=== PATIENT | male | born 1975 | race Caucasian/White ===

== ENCOUNTER 2017-03-09 03:17 | Emergency (ER) | payer MEDICAID ==
[~2017-03-09] VITALS: Ht 190.5 cm; Wt 90.1 kg
[~2017-03-09 03:17] MED LIST: ALBU18HF INH; ALBU90AE INH; NAPR500T3 PO
[2017-03-09] MEDS ORDERED: ONDANSETRON 2MG/ML, 2ML IVPush ONE (04:00)
[2017-03-09] MEDS ORDERED: MAALOX/HYOSCYAMINE/LIDOCAINE 45 ML BOTTLE PO ONE (04:00)
[2017-03-09] MEDS ORDERED: SODIUM CHLORIDE 0.9% 1,000ML IVBOLUS ONE (04:00)
[2017-03-09] MEDS ORDERED: FAMOTIDINE 20 MG/2 ML IVP ONE (04:00)
[2017-03-09] MEDS ORDERED: MAALOX/HYOSCYAMINE/LIDOCAINE 45 ML BOTTLE ONE (04:31)
[2017-03-09] MEDS ORDERED: FAMOTIDINE 20 MG/2 ML ONE (04:31)
[2017-03-09 04:34] LABS: ASPARTATE AMINO TRANSFERASE 17 U/L (15-37); BLOOD UREA NITROGEN 12 mg/dL (7-18)
[2017-03-09 04:38] LABS: IS PT STATUS REG ER OR PRE ER? YES
[2017-03-09] MEDS ORDERED: POTASSIUM CHLORIDE 20 MEQ TAB.ER.PRT PO ONE (05:00)
[2017-03-09] MEDS ORDERED: POTASSIUM CHLORIDE 20 MEQ TAB.ER.PRT ONE (05:06)
[2017-03-09 05:55] VITALS: BP 126/62
== END 2017-03-09 06:01 | disposition home or self-care (01) ==
LOC: ED 05:43
DX: R07.89 Other chest pain (principal)
CPT/HCPCS: 36415; 71010; 80053; 80307; 81003; 83690; 84484; 85025; 93005; 96374; 99284; J7030; 96375; S0028

== ENCOUNTER 2017-08-22 20:49 | Emergency (ER) | payer OTHER, MEDICAID ==
[~2017-08-22] VITALS: Ht 190.5 cm; Wt 77.1 kg
[~2017-08-22 20:49] MED LIST changes: -NAPR500T3 PO; +NAPR500T4 PO
[2017-08-22 22:08] LABS: HEMATOCRIT 43.7 % (39.2-51.8); HEMOGLOBIN 14.9 g/dL (13.7-18.0); WHITE BLOOD COUNT 10.5 x10^3/uL (3.4-10)
[2017-08-22 22:20] LABS: ASPARTATE AMINO TRANSFERASE 10 U/L (15-37); BLOOD UREA NITROGEN 12 mg/dL (7-18)
[2017-08-23 00:33] VITALS: BP 106/73
== END 2017-08-23 00:36 | disposition home or self-care (01) ==
LOC: ED 23:58
DX: K29.00 Acute gastritis without bleeding (principal)
CPT/HCPCS: 36415; 80053; 83690; 85025; 93005; 99285

== ENCOUNTER 2017-10-11 03:13 | Emergency (ER) | payer MEDICAID ==
[~2017-10-11] VITALS: Ht 190.5 cm; Wt 75.7 kg
[2017-10-11 03:49] LABS: BASOPHILS # (AUTO) 0.07 x10^3/uL (0-0.1); BASOPHILS % (AUTO) 1 % (0-1); EOSINOPHILS # (AUTO) 0.36 x10^3/uL (0-0.4); EOSINOPHILS % (AUTO) 3 % (1-7); LYMPHOCYTES # (AUTO) 2.43 x10^3/uL (1-3.4); LYMPHOCYTES % (AUTO) 20 % (22-44); MD NO; MEAN CORPUSCULAR HEMOGLOBIN 31.4 pg (27.5-34.5); MEAN CORPUSCULAR HGB CONC 33.8 g/dL (33.2-36.2); MEAN PLATELET VOLUME 9.7 fL (7.4-10.4); MONOCYTES # (AUTO) 0.67 x10^3/uL (0.2-0.8); MONOCYTES % (AUTO) 5 % (2-9); NEUTROPHILS # (AUTO) 8.89 x10^3/uL (1.8-6.8); NEUTROPHILS % (AUTO) 72 % (42-75); PLATELET COUNT 384 x10^3/uL (130-400); RED BLOOD COUNT 4.74 x10^6/uL (4.38-5.82)
[2017-10-11 04:02] LABS: ALBUMIN 4.4 g/dL (3.4-5.0); ANION GAP 3 mmol/L (5-15); CALCIUM 8.9 mg/dL (8.5-10.1); CHLORIDE 107 mmol/L (98-107); CREATININE 1.09 mg/dL (0.7-1.3)
[2017-10-11 04:05] LABS: TROPONIN I < 0.015 ng/mL (0.000-0.045)
[2017-10-11 04:47] VITALS: BP 109/72
== END 2017-10-11 04:47 | disposition home or self-care (01) ==
LOC: ED 03:29
DX: R07.2 Precordial pain (principal); Z72.9 Problem related to lifestyle, unspecified
CPT/HCPCS: 36415; 71046; 80048; 82040; 84484; 85025; 93005; 99285

== ENCOUNTER 2017-10-17 04:53 | Emergency (ER) | payer MEDICAID ==
[~2017-10-17] VITALS: Ht 190.5 cm; Wt 75.4 kg
[2017-10-17 04:54] VITALS: BP 113/77
[2017-10-17] MEDS ORDERED: ALBUTEROL/IPRATROPIUM 2.5MG/0.5MG, 3 ML NPPB ONE (05:30)
== END 2017-10-17 05:28 | disposition home or self-care (01) ==
LOC: ED 05:12
DX: B86 Scabies (principal); Z59.0 Homelessness; M19.90 Unspecified osteoarthritis, unspecified site
CPT/HCPCS: 99283

== ENCOUNTER 2017-11-11 21:45 | Emergency (ER) | payer MEDICAID, OTHER ==
[~2017-11-11] VITALS: Ht 190.5 cm; Wt 72.7 kg
[2017-11-11 21:51] VITALS: BP 100/63
[2017-11-11] MEDS ORDERED: KETOROLAC 30 MG/1 ML IM ONE (23:00)
[2017-11-11] MEDS ORDERED: KETOROLAC 30 MG/1 ML ONE (23:03)
== END 2017-11-11 23:13 | disposition home or self-care (01) ==
LOC: ED 22:34
DX: M70.22 Olecranon bursitis, left elbow (principal); G89.11 Acute pain due to trauma; M79.602 Pain in left arm; M54.2 Cervicalgia; F15.10 Other stimulant abuse, uncomplicated
CPT/HCPCS: 73080; 96372; 99284; J1885

== ENCOUNTER 2017-11-22 19:37 | Emergency (ER) | payer MEDICAID ==
[~2017-11-22] VITALS: Ht 190.5 cm; Wt 72.1 kg
[~2017-11-22 19:37] MED LIST changes: +METF500T4 PO
[2017-11-22 19:44] VITALS: BP 107/73
== END 2017-11-22 21:34 | disposition home or self-care (01) ==
LOC: ED 21:28
DX: M79.672 Pain in left foot (principal); E11.9 Type 2 diabetes mellitus without complications; M19.90 Unspecified osteoarthritis, unspecified site; J45.909 Unspecified asthma, uncomplicated
CPT/HCPCS: 99284

== ENCOUNTER 2018-12-16 06:19 | Emergency (ER) | payer MEDICAID ==
[~2018-12-16] VITALS: Ht 190.5 cm; Wt 74.3 kg
[~2018-12-16 06:19] MED LIST changes: +METF500T17 PO; -METF500T4 PO; +NAPR-685 PO; -NAPR500T4 PO
[2018-12-16 07:24] LABS: BASOPHILS # (AUTO) 0.03 x10^3/uL (0-0.1); BASOPHILS % (AUTO) 0 % (0-1); EOSINOPHILS # (AUTO) 0.15 x10^3/uL (0-0.4); EOSINOPHILS % (AUTO) 2 % (1-7); LYMPHOCYTES # (AUTO) 0.43 x10^3/uL (1-3.4); LYMPHOCYTES % (AUTO) 5 % (22-44); MD NO; MEAN CORPUSCULAR HEMOGLOBIN 30.9 pg (27.5-34.5); MEAN CORPUSCULAR HGB CONC 33.6 g/dL (33.2-36.2); MEAN PLATELET VOLUME 8.6 fL (7.4-10.4); MONOCYTES # (AUTO) 0.41 x10^3/uL (0.2-0.8); MONOCYTES % (AUTO) 4 % (2-9); NEUTROPHILS # (AUTO) 8.52 x10^3/uL (1.8-6.8); NEUTROPHILS % (AUTO) 89 % (42-75); PLATELET COUNT 284 x10^3/uL (130-400); RED CELL DISTRIBUTION WIDTH 13.6 % (9.4-14.8)
[2018-12-16 07:34] LABS: ALANINE AMINOTRANSFERASE 17 U/L (12-78); ALBUMIN 3.3 g/dL (3.4-5.0); ANION GAP 5 mmol/L (5-15); CHLORIDE 108 mmol/L (98-107); CREATININE 0.83 mg/dL (0.7-1.3)
[2018-12-16 07:36] LABS: ALKALINE PHOSPHATASE 65 U/L (45-117); TOTAL PROTEIN 5.8 g/dL (6.4-8.2)
--- NOTE | 2018-12-16 08:28 | NUR ---
PT SLEEPING. ENCOURAGED MULTIPLE TIMES TO VOID URINE PT STATES HE CAN'T. PT GOT UP TRIED YELLED PROFANITY AT ME THE REFUSED TO URINATE. INFORMED PT THE NEED TO COLLECT A URINE TO FURTHER DX HIS ABDOMINAL PAIN
[2018-12-16 09:08] LABS: MICROSCOPIC NOT IND
[2018-12-16 09:10] LABS: CULTURE INDICATED? NO
[2018-12-16 09:31] VITALS: BP 113/76
--- NOTE | 2018-12-16 09:33 | NUR ---
Patient/Caregiver given discharge instructions and they have confirmed that they understand the instructions. Patient ambulatory with steady gait.
== END 2018-12-16 09:50 | disposition home or self-care (01) ==
LOC: ED 07:52
DX: K29.00 Acute gastritis without bleeding (principal); F17.200 Nicotine dependence, unspecified, uncomplicated
CPT/HCPCS: 36415; 80053; 81003; 83690; 85025; 93005; 99284

== ENCOUNTER 2018-12-31 08:21 | Emergency (ER) | payer MEDICAID ==
[~2018-12-31] VITALS: Ht 190.5 cm; Wt 74.9 kg
[2018-12-31 08:32] VITALS: BP 96/64
[2018-12-31] MEDS ORDERED: DEXAMETHASONE 4 MG/ML, 1ML PO ONE (09:00)
[2018-12-31] MEDS ORDERED: DEXAMETHASONE 4 MG/ML, 5ML ONE (09:37)
== END 2018-12-31 09:56 | disposition home or self-care (01) ==
LOC: ED 09:11
DX: B34.9 Viral infection, unspecified (principal); E11.9 Type 2 diabetes mellitus without complications; M19.90 Unspecified osteoarthritis, unspecified site; J45.909 Unspecified asthma, uncomplicated
CPT/HCPCS: 87081; 87880; 99283; J1100

== ENCOUNTER 2019-02-08 14:49 | Emergency (ER) | payer MEDICAID ==
[~2019-02-08] VITALS: Ht 190.5 cm; Wt 71.0 kg
[2019-02-08 14:51] VITALS: BP 105/71
[2019-02-08 15:14] LABS: BASOPHILS # (AUTO) 0.07 x10^3/uL (0-0.1); BASOPHILS % (AUTO) 1 % (0-1); EOSINOPHILS # (AUTO) 0.43 x10^3/uL (0-0.4); EOSINOPHILS % (AUTO) 5 % (1-7); LYMPHOCYTES # (AUTO) 2.23 x10^3/uL (1-3.4); LYMPHOCYTES % (AUTO) 24 % (22-44); MD NO; MEAN CORPUSCULAR HEMOGLOBIN 31.2 pg (27.5-34.5); MEAN CORPUSCULAR HGB CONC 33.1 g/dL (33.2-36.2); MEAN CORPUSCULAR VOLUME 94.3 fL (81-97); MEAN PLATELET VOLUME 9.2 fL (7.4-10.4); MONOCYTES # (AUTO) 0.69 x10^3/uL (0.2-0.8); MONOCYTES % (AUTO) 7 % (2-9); NEUTROPHILS # (AUTO) 6.09 x10^3/uL (1.8-6.8); NEUTROPHILS % (AUTO) 64 % (42-75); PLATELET COUNT 381 x10^3/uL (130-400); RED BLOOD COUNT 4.64 x10^6/uL (4.38-5.82)
[2019-02-08 15:24] LABS: ALBUMIN 3.4 g/dL (3.4-5.0); ANION GAP 8 mmol/L (5-15); CALCIUM 8.5 mg/dL (8.5-10.1); CHLORIDE 109 mmol/L (98-107); CREATININE 0.93 mg/dL (0.7-1.3)
[2019-02-08] MEDS ORDERED: BACITRACIN ZINC OINT 500U/GM, 0.9 GM ONE (15:49)
--- NOTE | 2019-02-08 16:16 | NUR ---
Patient/Caregiver given discharge instructions and they have confirmed that they understand the instructions. Patient ambulatory with steady gait with cane.
== END 2019-02-08 16:18 | disposition home or self-care (01) ==
LOC: ED 16:05
DX: L03.031 Cellulitis of right toe (principal)
CPT/HCPCS: 36415; 80048; 82040; 82962; 85025; 99284

== ENCOUNTER 2019-08-10 13:04 | Emergency (ER) | payer MEDICAID ==
[~2019-08-10] VITALS: Ht 190.5 cm; Wt 75.0 kg
[2019-08-10 13:47] VITALS: BP 132/75
[2019-08-10 14:59] LABS: ALBUMIN 4.1 g/dL (3.4-5.0); ANION GAP 2 mmol/L (5-15); CALCIUM 8.5 mg/dL (8.5-10.1); CHLORIDE 109 mmol/L (98-107); CREATININE 1.03 mg/dL (0.7-1.3)
== END 2019-08-10 15:21 | disposition home or self-care (01) ==
LOC: ED 15:20
DX: B86 Scabies (principal); M19.90 Unspecified osteoarthritis, unspecified site; J45.909 Unspecified asthma, uncomplicated; E11.9 Type 2 diabetes mellitus without complications; Z87.891 Personal history of nicotine dependence; Z59.0 Homelessness
CPT/HCPCS: 36415; 80048; 82040; 99283

== ENCOUNTER 2019-10-14 14:26 | Emergency (ER) | payer MEDICAID ==
[~2019-10-14] VITALS: Ht 190.5 cm; Wt 75.0 kg
[2019-10-14 14:54] VITALS: BP 104/65
--- NOTE | 2019-10-14 19:30 | NUR ---
OUTSIDE DELIVERER: NIL WHEN CALLED FOR VS
--- NOTE | 2019-10-14 21:53 | NUR ---
NOT IN LOBBY X2
--- NOTE | 2019-10-14 21:56 | NUR ---
NIL X3 LWBS
== END 2019-10-14 21:58 ==
LOC: ED 21:52
DX: R51 Headache (principal); R11.0 Nausea; Z53.21 Procedure and treatment not carried out due to patient leaving prior to being seen by health care provider

== ENCOUNTER 2020-09-24 22:31 | Emergency (ER) | payer MEDICAID ==
[~2020-09-24] VITALS: Ht 190.5 cm; Wt 75.2 kg
--- NOTE | 2020-09-24 23:14 | NUR ---
CC OF PAIN ON RIGHT FOREARM FOR 3-4 DAYS 3 IN SEVERITY, DENIES TRAUMA TO ARM. PT STATES IT HURTS MORE WHEN ITS COLD AND THAT HE LIVES IN A TENT.
[2020-09-24] MEDS ORDERED: IBUPROFEN 800 MG TABLET PO ONE (23:30)
[2020-09-24] MEDS ORDERED: IBUPROFEN 800 MG TABLET ONE (23:58)
[2020-09-25 00:01] VITALS: BP 104/65
== END 2020-09-25 00:19 | disposition home or self-care (01) ==
LOC: ED 23:56
DX: M77.11 Lateral epicondylitis, right elbow (principal); R00.0 Tachycardia, unspecified; E11.9 Type 2 diabetes mellitus without complications; M19.90 Unspecified osteoarthritis, unspecified site; J45.909 Unspecified asthma, uncomplicated
CPT/HCPCS: 99283

== ENCOUNTER 2020-12-01 12:03 | Emergency (ER) | payer MEDICAID ==
[~2020-12-01] VITALS: Ht 190.5 cm; Wt 72.8 kg
[2020-12-01 12:26] VITALS: BP 115/74
[2020-12-01] MEDS ORDERED: ACETAMINOPHEN 500 MG TABLET PO ONE (16:00)
[2020-12-01] MEDS ORDERED: ACETAMINOPHEN 500 MG TABLET ONE (16:06)
== END 2020-12-01 18:09 | disposition home or self-care (01) ==
LOC: ED 15:46
DX: S43.101A Unspecified dislocation of right acromioclavicular joint, initial encounter (principal); X58.XXXA Exposure to other specified factors, initial encounter; Y93.89 Activity, other specified; Y92.89 Other specified places as the place of occurrence of the external cause; Y99.8 Other external cause status
CPT/HCPCS: 99284